=== PATIENT | female | born 1945 | race Two or more races ===

== ENCOUNTER 2017-04-16 11:47 | Inpatient (IN) | payer MEDICAID, MEDICARE, OTHER ==
[~2017-04-16] VITALS: Ht 160 cm; Wt 51.3 kg
[~2017-04-16 11:47] MED LIST: AMLO10TA4 PO; ATOR40TA PO; HYDR-4076 PO; VALS320T2 PO
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
[2017-04-16 12:14] LABS: BASOPHILS % (AUTO) 0.3 % (0.0-2.0); EOSINOPHILS % (AUTO) 0.2 % (0.0-6.0); HEMATOCRIT 35 % (33-45); HEMOGLOBIN 11.3 g/dL (11.5-14.8); LYMPHOCYTES # (AUTO) 0.9 /CMM (0.8-4.8); LYMPHOCYTES % (AUTO) 9.5 % (20.0-44.0); MEAN CORPUSCULAR HEMOGLOBIN 27 PG (26.0-33.0); MEAN CORPUSCULAR HGB CONC 33 g/dl (31.0-36.0); MEAN CORPUSCULAR VOLUME 81 fL (82-100); MONOCYTES # (AUTO) 0.7 /CMM (0.1-1.30); MONOCYTES % (AUTO) 7.3 % (2.0-12.0); NEUTROPHILS # (AUTO) 7.5 /CMM (1.8-8.9); NEUTROPHILS % (AUTO) 82.7 % (43.0-81.0); PLATELET COUNT (AUTO) 255 /CMM (150-450); RDW COEFFICIENT OF VARIATION 13.5 (11.5-15.0); RED BLOOD CELL COUNT(AUTO) 4.25 MIL/uL (4.0-5.2); WHITE BLOOD COUNT (AUTO) 9.1 K/uL (4.3-11.0)
[2017-04-16 12:30] LABS: ALANINE AMINOTRANSFERASE 39 U/L (12-78); ALBUMIN 3.1 g/dL (3.4-5.0); ALCOHOL, BLOOD < 3 mg/dL (0-0); ALKALINE PHOSPHATASE 86 U/L (46-116); ASPARTATE AMINOTRANSFERASE 31 U/L (15-37); BILIRUBIN,DIRECT 0.1 mg/dL (0.0-0.2); BILIRUBIN,TOTAL 0.4 mg/dL (0.2-1.0); CALCIUM, SERUM 8.8 mg/dL (8.5-10.1); CARBON DIOXIDE 28 mmol/L (21-32); CHLORIDE 104 mmol/L (98-107); CREATININE 1.4 mg/dL (0.6-1.3); GLUCOSE 90 mg/dL (74-106); SODIUM SERUM 140 mmol/L (136-145); TOTAL PROTEIN, SERUM 7.1 g/dL (6.4-8.2); UREA NITROGEN, BLOOD 29 mg/dL (7-18)
[2017-04-16] MEDS ORDERED: VALSARTAN 80 MG TABLET PO ONE (12:30)
[2017-04-16] MEDS ORDERED: AMLODIPINE BESYLATE 5 MG TABLET PO ONE (12:30)
[2017-04-16] MEDS ORDERED: hydrALAZINE HCL IV 20 MG VIAL IV ONE (12:30)
[2017-04-16 12:31] LABS: ACETAMINOPHEN < 2 ug/ml (10-30); POTASSIUM 2.8 mmol/L (3.5-5.1); SALICYLATE 0.9 mg/dL (2.8-20.0)
[2017-04-16 12:34] LABS: APPEARANCE,URINE Slightly Cloudy (CLEAR); BILIRUBIN,URINE Negative (NEGATIVE); BLOOD, URINE Trace-lysed Ery/uL (NEGATIVE); COLOR,URINE Yellow (YELLOW); KETONES,URINE Negative (NEGATIVE); LEUKOCYTE ESTERASE ,URINE Small (NEGATIVE); NITRITE, URINE Negative (NEGATIVE); PH,URINE 6.5 (5.0-8.0); PROTEIN,URINE 100 mg/dl (NEGATIVE); UGLUCOSE Negative (NEGATIVE); UROBILINOGEN,URINE 0.2 EU/dL (0.2)
[2017-04-16] MEDS ORDERED: AMLODIPINE BESYLATE 5 MG TABLET ONE (12:38)
[2017-04-16] MEDS ORDERED: hydrALAZINE HCL IV 20 MG VIAL ONE (12:38)
[2017-04-16 12:39] LABS: BACTERIA,URINE Rare /HPF (None Seen); RBC,URINE 0-2 /HPF (0-2); SQUAMOUS EPITHELIAL CELL,UR Rare /HPF (None Seen); WBC,URINE 0-2 /HPF (0-3)
[2017-04-16] MEDS ORDERED: VALSARTAN 80 MG TABLET ONE (12:39)
[2017-04-16 12:40] LABS: THYROID STIMULATING HORMONE 1.551 uIU/mL (0.358-3.74)
--- NOTE | 2017-04-16 12:40 | NUR ---
EPIC PAGED, REGISTERED MIDWIFE
--- NOTE | 2017-04-16 12:44 | NUR ---
CALLED NURSING SUP. FOR TELE BED
--- NOTE | 2017-04-16 12:50 | NUR ---
PT TO RADIOLOGY FOR HEAD CT SCAN VIA [facility].
--- NOTE | 2017-04-16 12:54 | NUR ---
TELE 116-2
[2017-04-16] MEDS ORDERED: POTASSIUM CHLORIDE 20 MEQ TAB.PRT.SR PO ONE ×2 (13:00→13:08)
--- NOTE | 2017-04-16 13:26 | NUR ---
REPORT GIVENPOOJA NAYAK. PT AWAITING TRANSFER TO FLOOR.
[2017-04-16] MEDS ORDERED: Z GUARD REMEDY 2 OZ OINT TP PRN (13:30)
[2017-04-16] MEDS ORDERED: MAGNESIUM HYDROXIDE 30 ML UDC PO PRN (13:30)
[2017-04-16] MEDS ORDERED: ACETAMINOPHEN 325 MG TABLET PO PRN (13:30)
[2017-04-16] MEDS ORDERED: ONDANSETRON HCL/PF 4 MG/2 ML VIAL IVP PRN (13:30)
[2017-04-16] MEDS ORDERED: ZOLPIDEM TARTRATE 5 MG TABLET PO PRN (13:30)
[2017-04-16] MEDS ORDERED: LABETALOL HCL IV 100MG VIAL IV PRN (13:30)
[2017-04-16] MEDS ORDERED: MAG HYDROX/AL HYDROX/SIMETH 30 ML UDC PO PRN (13:30)
[2017-04-16] MEDS ORDERED: HYDROCODONE/APAP 5/325MG 1 EACH TABLET PO PRN (13:30)
--- NOTE | 2017-04-16 13:35 | NUR ---
TANNER- [phone] FRIEND CHERYL- [phone]
[2017-04-16 14:00] VITALS: BP 134/98
[2017-04-16 14:30] VITALS: BP 134/98
--- NOTE | 2017-04-16 14:38 | NUR ---
OREN RN NOTE RECEIVED PATIENT FROM ER ,ALERT ORIENTED AND WITH SOME FORGETFULNESS AND ANXIOUS. PLACED ON TEL SR -ST 100 , VS TAKEN ADMITTED WITH DX HYPERFUSION UNDER CARE DOCTOR MARVA , HOSPITAL ORIENTATION DONE , VS TAKEN, BELONGING CHECKED , PLAN OF CARE DISCUSSER WITH PATIENT , CALL LIGHT WITHIN REACH , BED IN LOWEST AND LOCKED POSITION , BED ALARM IN PLACE FOR PATIENT SAFETY , HL ON RT AC INTACT, NO S\S INFECTION NOTED, WILL CONT TO MONITOR CLOSELY
--- NOTE | 2017-04-16 14:54 | NUR ---
OREN RN NOTE PER DR MARVA YBARRA TO ORDER PSYCH EVAL FOR PATENT BEHAVIOR , FEELS VERY ANXIOUS AND FEARFUL, FACE SHEET FAXED TO [facility]
[2017-04-16] MEDS: IV NS 0.9% 1,000 ML IV PRN (15:24)
--- NOTE | 2017-04-16 15:45 | NUR ---
OREN RN NOTE IVF STARTED ORDERED
[2017-04-16 16:00] VITALS: BP 134/89
--- NOTE | 2017-04-16 17:54 | NUR ---
OREN [place] NOTE CALLED TO DR DURHAM NOTIFIED THAT PATIENT NONCOMPLIANT WITH CARE TRYING TO REMOVE ALL IV LINES AND GET OUT OFF BED , AT RISK FALL FALL WITH NEW ORDER ATIVAN GIVEN , ORDER CARRIED OUT Addendum: 04/16/17 at 1827 by MALINI JENNINGS RN OREN [place] NOTE 1822 ATIVAN 0.5 MG IVP GIVEN ORDERED FOR RESTLESS AND AGITATION BY TRYING TO REMOVE ALL LINES AND TRYING TO GET OUT OFF BED ,AT RISK FOR FALL WILL F\U
[2017-04-16] MEDS: LORAZEPAM INJ 2 MG/ML VIAL IV PRN (18:16)
--- NOTE | 2017-04-16 18:49 | NUR ---
OREN RN NOTE RESTING COMFORTABLY FOR NOW , ALL NEEDS ATTENDED, CONT ON IVF ORDERED
--- NOTE | 2017-04-16 19:30 | NUR ---
RN NOTES PT AWAKE ON BED. QUIET. NO ACUTE RESP DISTRESS ON ROOM AIR. WITH SITTER AT BEDSIDE DUE TO EPISODE OF GETTING OUT ON BED AND CONFUSION AT TIMES. AOX 2-3 ABLE TO MAKE KNOWN NEEDS AND MAKE CONVERSATION. NO SIGNIFICANT HYPERTENSION NOR S/S OF HYPERTENSION NOTED. NO EPISODE OF DIZZINESS OR HEADACHE. IV SITE ON RAC G 20 RUNNING WITH NS @ 75 CC/HR INTACT AND PATENT./ KEPT PT CLEAN AND DRY CLOSELY MONITOR. BED LOCKED AND SECURED. WILL CONTINUE TO MONITOR.
[2017-04-16 20:00] VITALS: BP 130/84
[2017-04-17 00:11] VITALS: BP 144/93
[2017-04-17] MEDS: LORAZEPAM INJ 2 MG/ML VIAL IV PRN ×2 (03:31→21:25)
[2017-04-17 04:00] VITALS: BP 147/94
[2017-04-17] MEDS: IV NS 0.9% 1,000 ML IV PRN (05:44)
--- NOTE | 2017-04-17 06:49 | NUR ---
RN NOTES PT AWAKE AT THIS TIME. AFEBRILE NO S/S OF HYPERTENSION.PT ASLEEP ON AND SITTER REMAINED AT BEDSIDE. ALL DUE MEDICINE GIVEN ORDERED. NO CHANGE OF MENTAL STATUS NO ASE FROM ALL MEDICINE IV SITE CHANGE TO RIGHT HAND G22. NO SIGNIFICANT CHANGE OF CONDITION NOTED. KEPT PT CLEAN AND DRY. WILL CONTINUE TO MONITOR AND ENDORSED CONTINUITY OF CARE TO AM NURSE.
--- NOTE | 2017-04-17 07:46 | NUR ---
RN NOTES PT RECEIVED IN STABLE CONDITION, ON ROOM AIR SATING WELL NO SOB OR DISTRESS NOTED. A&0X3, PT BECOMES FORGETFUL. SR ON THE TELE MARILU HR 87. RH 22G IV SITE INTACT WITH IVF AT 75ML/HR. SITTER AT BEDSIDE FOR SAFETY. WILL CONT TO MARILU.
[2017-04-17 08:00] VITALS: BP 159/100
[2017-04-17] MEDS ORDERED: POTASSIUM CHLORIDE 20 MEQ TAB.PRT.SR PO ONE (08:30)
[2017-04-17] MEDS: VALSARTAN 80 MG TABLET PO SCH (08:32)
[2017-04-17] MEDS: ASPIRIN 81 MG TAB.CHEW PO SCH (08:32)
[2017-04-17] MEDS: AMLODIPINE BESYLATE 10 MG TABLET PO SCH (08:33)
[2017-04-17 08:50] LABS: BASOPHILS % (AUTO) 0.5 % (0.0-2.0); EOSINOPHILS % (AUTO) 0.8 % (0.0-6.0); HEMATOCRIT 33 % (33-45); LYMPHOCYTES % (AUTO) 19.1 % (20.0-44.0); MEAN CORPUSCULAR HEMOGLOBIN 28 PG (26.0-33.0); MEAN CORPUSCULAR HGB CONC 33 g/dl (31.0-36.0); MEAN CORPUSCULAR VOLUME 84 fL (82-100); MONOCYTES # (AUTO) 0.5 /CMM (0.1-1.30); MONOCYTES % (AUTO) 8.9 % (2.0-12.0); NEUTROPHILS # (AUTO) 3.8 /CMM (1.8-8.9); NEUTROPHILS % (AUTO) 70.7 % (43.0-81.0); PLATELET COUNT (AUTO) 225 /CMM (150-450); RDW COEFFICIENT OF VARIATION 14.9 (11.5-15.0); RED BLOOD CELL COUNT(AUTO) 3.96 MIL/uL (4.0-5.2); WHITE BLOOD COUNT (AUTO) 5.4 K/uL (4.3-11.0)
[2017-04-17 09:01] LABS: CALCIUM, SERUM 8.8 mg/dL (8.5-10.1); CARBON DIOXIDE 25 mmol/L (21-32); CHLORIDE 109 mmol/L (98-107); CREATININE 1.3 mg/dL (0.6-1.3); GLUCOSE 99 mg/dL (74-106); PHOSPHORUS 2.9 mg/dL (2.5-4.9); POTASSIUM 3.4 mmol/L (3.5-5.1); SODIUM SERUM 143 mmol/L (136-145); UREA NITROGEN, BLOOD 24 mg/dL (7-18)
[2017-04-17 09:10] LABS: CHOLESTEROL 178 mg/dL (<200); HDL CHOLESTEROL 78 mg/dL (40-60); LDL 86 mg/dL (0-99); THYROID STIMULATING HORMONE 1.935 uIU/mL (0.358-3.74); TRIGLYCERIDES 80 mg/dL (30-150)
[2017-04-17 12:00] VITALS: BP 144/90
[2017-04-17 16:00] VITALS: BP 143/80
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
--- NOTE | 2017-04-17 17:34 | NUR ---
RN NOTES PER CINDI MATTHEWS PULLED OUT IV. WILL ATTEMPT TO START A NEW IV.
--- NOTE | 2017-04-17 17:47 | NUR ---
RN NOTES PT REFUSING NEW IV. CHARGE NURSE AND DR DURHAM MADE AWARE.
--- NOTE | 2017-04-17 18:32 | NUR ---
RN NOTES PT REMAINED IN STABLE CONDITION THROUGHOUT THE SHIFT, NO SIGNIFICANT CHANGES. PT CONTINUES TO HALLUCINATE. STILL REFUSING NEW IV. SITTER AT BEDSIDE. WILL ENDORSE TO ONCOMING SHIFT.
[2017-04-17 20:00] VITALS: BP 156/98
[2017-04-17] MEDS ORDERED: QUETIAPINE FUMARATE 25 MG TABLET PO SCH (20:00)
--- NOTE | 2017-04-17 20:00 | NUR ---
RN MS INITIAL NOTES, RECEIVED PATIENT IN BED, AWAKE ALERT AND ORIENTED X2, BREATHING EVEN AND UNLABORED, NO S/S OF SOB OR CUTE DISTRESS NOTED AT THIS TIME, CALM AT THIS TIME, SITTER AT BEDSIDE AT THIS TIME, BED LOCKED AND IN LOWEST POSITION, CALL LIGHT W/I REACH., WILL CONTINUE TO MONITOR CLOSELY.
[2017-04-17] MEDS ORDERED: ATORVASTATIN 40 MG TABLET PO SCH (22:00)
[2017-04-18 04:00] VITALS: BP 142/83
[2017-04-18 08:34] LABS: BASOPHILS % (AUTO) 0.7 % (0.0-2.0); EOSINOPHILS # (AUTO) 0.1 /CMM (0.0-0.7); EOSINOPHILS % (AUTO) 1.5 % (0.0-6.0); HEMATOCRIT 34 % (33-45); HEMOGLOBIN 11.3 g/dL (11.5-14.8); LYMPHOCYTES # (AUTO) 1.2 /CMM (0.8-4.8); LYMPHOCYTES % (AUTO) 19.1 % (20.0-44.0); MEAN CORPUSCULAR HEMOGLOBIN 28 PG (26.0-33.0); MEAN CORPUSCULAR HGB CONC 33 g/dl (31.0-36.0); MEAN CORPUSCULAR VOLUME 85 fL (82-100); MONOCYTES # (AUTO) 0.6 /CMM (0.1-1.30); MONOCYTES % (AUTO) 10.1 % (2.0-12.0); NEUTROPHILS # (AUTO) 4.4 /CMM (1.8-8.9); NEUTROPHILS % (AUTO) 68.6 % (43.0-81.0); PLATELET COUNT (AUTO) 256 /CMM (150-450); RDW COEFFICIENT OF VARIATION 15.1 (11.5-15.0); WHITE BLOOD COUNT (AUTO) 6.4 K/uL (4.3-11.0)
[2017-04-18 09:12] LABS: CALCIUM, SERUM 9.3 mg/dL (8.5-10.1); CARBON DIOXIDE 24 mmol/L (21-32); CHLORIDE 109 mmol/L (98-107); CREATININE 1.4 mg/dL (0.6-1.3); GLUCOSE 97 mg/dL (74-106); MAGNESIUM 2.1 mg/dL (1.8-2.4); POTASSIUM 4.7 mmol/L (3.5-5.1); SODIUM SERUM 142 mmol/L (136-145); UREA NITROGEN, BLOOD 27 mg/dL (7-18)
[2017-04-18 14:00] VITALS: BP 133/97
--- NOTE | 2017-04-18 14:06 | NUR ---
Intake called, Uyen requests return call if patient medically cleared for discharge to [facility].
[2017-04-18] MEDS: ASPIRIN 81 MG TAB.CHEW PO SCH (14:12)
[2017-04-18] MEDS: AMLODIPINE BESYLATE 10 MG TABLET PO SCH (14:14)
[2017-04-18 14:17] VITALS: BP 131/97
[2017-04-18] MEDS: VALSARTAN 80 MG TABLET PO SCH (14:17)
--- NOTE | 2017-04-18 18:11 | NUR ---
Discharged patient under 5150 hold to geropsychiatry facility in [place].
[2017-04-18] MEDS ORDERED: VALS80TA2 PO (18:19)
[2017-04-18] MEDS ORDERED: MAG30ORA PO (18:19)
[2017-04-18] MEDS ORDERED: QUET25TA PO (18:19)
[2017-04-18] MEDS ORDERED: LABE5VIA3 IV (18:19)
[2017-04-18] MEDS ORDERED: AMLO10TA2 PO (18:19)
[2017-04-18] MEDS ORDERED: ONDA4TAB5 PO (18:19)
[2017-04-18] MEDS ORDERED: NORM10004 IV (18:19)
[2017-04-18] MEDS ORDERED: ZOLP5TAB8 PO (18:19)
[2017-04-18] MEDS ORDERED: ACET-868 PO (18:19)
[2017-04-18] MEDS ORDERED: ATOR40TA PO (18:19)
[2017-04-18] MEDS ORDERED: MAGN400O6 PO (18:19)
[2017-04-18] MEDS ORDERED: HYDR-552 PO (18:19)
[2017-04-18] MEDS ORDERED: ASPI-1169 PO (18:19)
[2017-04-18] MEDS ORDERED: ALLA266C2 TP (18:19)
[2017-04-18] MEDS ORDERED: LORA2VIA11 IV (18:19)
== END 2017-04-18 17:38 | DRG 304 ==
LOC: ER 11:49 → TELE1 13:49 → TELE-TD 14:10 → TELE1 04-17 09:59 → MEDSG1 04-17 16:08
PROVIDERS: ADMIT Internal Medicine; ATTEND Internal Medicine
DX: I16.0 Hypertensive urgency (principal); N17.0 Acute kidney failure with tubular necrosis; E46 Unspecified protein-calorie malnutrition; F23 Brief psychotic disorder; E88.09 Other disorders of plasma-protein metabolism, not elsewhere classified; E78.5 Hyperlipidemia, unspecified; E87.6 Hypokalemia; Z86.73 Personal history of transient ischemic attack (TIA), and cerebral infarction without residual deficits; Z68.20 Body mass index [BMI] 20.0-20.9, adult; G43.909 Migraine, unspecified, not intractable, without status migrainosus; I70.90 Unspecified atherosclerosis; R41.0 Disorientation, unspecified; F01.50 Vascular dementia, unspecified severity, without behavioral disturbance, psychotic disturbance, mood disturbance, and anxiety; Z91.14 Patient's other noncompliance with medication regimen
CPT/HCPCS: 36415; 70450-TC; 80048-TC; 80061-TC; 80076-TC; 80305; 81000-TC; 83735-TC; 84100-TC; 84443-TC; 84484-TC; 85025-TC; 87081-TC; 97116-TC; 97530-TC; A4606; G0480; J0360; J2060; J7030; Z7610

== ENCOUNTER 2017-04-18 18:08 | Inpatient (IN) | payer OTHER ==
[~2017-04-18] VITALS: Ht 154.9 cm; Wt 47.6 kg
[2017-04-18] MEDS ORDERED: QUET25TA PO (18:19)
[2017-04-18] MEDS ORDERED: ZOLP5TAB8 PO (18:19)
[2017-04-18] MEDS ORDERED: AMLO10TA2 PO (18:19)
[2017-04-18] MEDS ORDERED: MAG30ORA PO (18:19)
[2017-04-18] MEDS ORDERED: ATOR40TA PO (18:19)
[2017-04-18] MEDS ORDERED: LORA2VIA11 IV (18:19)
[2017-04-18] MEDS ORDERED: LABE5VIA3 IV (18:19)
[2017-04-18] MEDS ORDERED: NORM10004 IV (18:19)
[2017-04-18] MEDS ORDERED: MAGN400O6 PO (18:19)
[2017-04-18] MEDS ORDERED: VALS80TA2 PO (18:19)
[2017-04-18] MEDS ORDERED: ONDA4TAB5 PO (18:19)
[2017-04-18] MEDS ORDERED: HYDR-552 PO (18:19)
[2017-04-18] MEDS ORDERED: ALLA266C2 TP (18:19)
[2017-04-18] MEDS ORDERED: ACET-868 PO (18:19)
[2017-04-18] MEDS ORDERED: ASPI-1169 PO (18:19)
[2017-04-18] MEDS ORDERED: MAG HYDROX/AL HYDROX/SIMETH 30 ML UDC PO PRN (18:30)
[2017-04-18] MEDS ORDERED: MAGNESIUM HYDROXIDE 30 ML UDC PO PRN (18:30)
[2017-04-18] MEDS ORDERED: LORAZEPAM 0.5 MG TABLET PO PRN (18:30)
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
[2017-04-18 20:00] VITALS: BP 129/88
--- NOTE | 2017-04-18 20:53 | NUR ---
PAGED DR. PRICE REGARDING MED RECONCILIATION.
--- NOTE | 2017-04-18 22:58 | NUR ---
LANIE CALLED AND SAID, SHE IS FILING THE TARASOFF, SHE IS ALSO CALLING THE POLICE TO MAKE A FOLLOW UP, BECAUSE SHE CAN'T GET HOLD OF THE OF THE PATIENT.
[2017-04-18] MEDS: TEMAZEPAM 7.5 MG CAPSULE PO PRN (23:14)
[2017-04-19] MEDS ORDERED: LABETALOL HCL IV 100MG VIAL IV PRN (02:30)
[2017-04-19 08:00] VITALS: BP 150/99
[2017-04-19] MEDS: ASPIRIN 81 MG TAB.CHEW PO SCH (08:13)
[2017-04-19] MEDS: AMLODIPINE BESYLATE 10 MG TABLET PO SCH (08:13)
[2017-04-19] MEDS: VALSARTAN 80 MG TABLET PO SCH (08:14)
[2017-04-19 08:35] LABS: ALANINE AMINOTRANSFERASE 40 U/L (12-78); ALBUMIN 3.3 g/dL (3.4-5.0); ALKALINE PHOSPHATASE 80 U/L (46-116); ASPARTATE AMINOTRANSFERASE 25 U/L (15-37); BILIRUBIN,TOTAL 0.4 mg/dL (0.2-1.0); CALCIUM, SERUM 9.4 mg/dL (8.5-10.1); CARBON DIOXIDE 29 mmol/L (21-32); CHLORIDE 108 mmol/L (98-107); CREATININE 1.6 mg/dL (0.6-1.3); GLUCOSE 111 mg/dL (74-106); POTASSIUM 4.3 mmol/L (3.5-5.1); SODIUM SERUM 144 mmol/L (136-145); TOTAL PROTEIN, SERUM 7.2 g/dL (6.4-8.2); UREA NITROGEN, BLOOD 38 mg/dL (7-18)
[2017-04-19 08:44] LABS: CHOLESTEROL 164 mg/dL (<200); HDL CHOLESTEROL 79 mg/dL (40-60); LDL 76 mg/dL (0-99); TRIGLYCERIDES 80 mg/dL (30-150)
--- NOTE | 2017-04-19 10:36 | NUR ---
GPS RN NOTE: T.O. ORDER PER MD DR JOHNSON SEROQUEL 12.5 MG PO EVERY HS, ORDER PLACED AND CARED OUT
[2017-04-19 16:00] VITALS: BP 144/93
--- NOTE | 2017-04-19 16:31 | NUR ---
Initial Discharge Note: Patient resides at [address] [place] [address] [place] [id number] / [phone] with her , Avelino. Patient stated that she wanted to return home upon discharge. SW called the by calling the house number listed on the facesheet. The telephone rang continuously and did not have a voicemail option. Alternative placement might be necessary for patient. ELIA will follow up with MD and will facilitate a safe and proper discharge.
[2017-04-19 20:00] VITALS: BP 150/90
[2017-04-19] MEDS: ATORVASTATIN 40 MG TABLET PO SCH (21:14)
[2017-04-19] MEDS: QUETIAPINE FUMARATE 25 MG TABLET PO SCH (21:14)
[2017-04-19] MEDS: TEMAZEPAM 7.5 MG CAPSULE PO PRN (21:14)
[2017-04-20 08:00] VITALS: BP 113/78
[2017-04-20] MEDS: ASPIRIN 81 MG TAB.CHEW PO SCH (09:33)
[2017-04-20] MEDS: AMLODIPINE BESYLATE 10 MG TABLET PO SCH (09:33)
[2017-04-20] MEDS: VALSARTAN 80 MG TABLET PO SCH (09:33)
[2017-04-20 11:09] LABS: CALCIUM, SERUM 9.3 mg/dL (8.5-10.1); CARBON DIOXIDE 27 mmol/L (21-32); CHLORIDE 105 mmol/L (98-107); CREATININE 1.7 mg/dL (0.6-1.3); GLUCOSE 103 mg/dL (74-106); MAGNESIUM 2.3 mg/dL (1.8-2.4); PHOSPHORUS 5.1 mg/dL (2.5-4.9); POTASSIUM 4.9 mmol/L (3.5-5.1); SODIUM SERUM 139 mmol/L (136-145); UREA NITROGEN, BLOOD 39 mg/dL (7-18)
[2017-04-20 11:11] LABS: BASOPHILS % (AUTO) 0.5 % (0.0-2.0); EOSINOPHILS % (AUTO) 0.2 % (0.0-6.0); HEMATOCRIT 35 % (33-45); HEMOGLOBIN 11.8 g/dL (11.5-14.8); LYMPHOCYTES # (AUTO) 0.8 /CMM (0.8-4.8); LYMPHOCYTES % (AUTO) 8.2 % (20.0-44.0); MEAN CORPUSCULAR HEMOGLOBIN 28 PG (26.0-33.0); MEAN CORPUSCULAR HGB CONC 34 g/dl (31.0-36.0); MEAN CORPUSCULAR VOLUME 82 fL (82-100); MONOCYTES # (AUTO) 0.5 /CMM (0.1-1.30); MONOCYTES % (AUTO) 5.5 % (2.0-12.0); NEUTROPHILS % (AUTO) 85.6 % (43.0-81.0); PLATELET COUNT (AUTO) 270 /CMM (150-450); RDW COEFFICIENT OF VARIATION 14.1 (11.5-15.0); RED BLOOD CELL COUNT(AUTO) 4.22 MIL/uL (4.0-5.2); WHITE BLOOD COUNT (AUTO) 9.3 K/uL (4.3-11.0)
--- NOTE | 2017-04-20 11:59 | NUR ---
DR. JOHNSON GAVE AN ORDER TO CHANGE SERVICE TO DR. PADRON
[2017-04-20] MEDS: SERTRALINE HCL 25 MG TABLET PO SCH (15:09)
[2017-04-20 16:00] VITALS: BP 111/79
[2017-04-20 20:00] VITALS: BP 118/78
[2017-04-20] MEDS: QUETIAPINE FUMARATE 25 MG TABLET PO SCH (21:32)
[2017-04-20] MEDS: ATORVASTATIN 40 MG TABLET PO SCH (21:33)
[2017-04-21 08:00] VITALS: BP 112/69
[2017-04-21] MEDS: ASPIRIN 81 MG TAB.CHEW PO SCH (09:05)
[2017-04-21] MEDS: SERTRALINE HCL 25 MG TABLET PO SCH (09:06)
[2017-04-21] MEDS: AMLODIPINE BESYLATE 10 MG TABLET PO SCH (09:06)
[2017-04-21] MEDS: VALSARTAN 80 MG TABLET PO SCH (09:06)
[2017-04-21 15:57] VITALS: BP 105/69
[2017-04-21 21:03] VITALS: BP 125/94
[2017-04-21] MEDS: ATORVASTATIN 40 MG TABLET PO SCH (22:13)
[2017-04-21] MEDS: QUETIAPINE FUMARATE 25 MG TABLET PO SCH (22:13)
[2017-04-22 08:00] VITALS: BP 121/82
[2017-04-22] MEDS: SERTRALINE HCL 25 MG TABLET PO SCH (08:32)
[2017-04-22] MEDS: VALSARTAN 80 MG TABLET PO SCH (08:32)
[2017-04-22] MEDS: ASPIRIN 81 MG TAB.CHEW PO SCH (08:33)
[2017-04-22] MEDS: AMLODIPINE BESYLATE 10 MG TABLET PO SCH (08:33)
--- NOTE | 2017-04-22 15:08 | NUR ---
GPS/RN AUGUSTA WHITE NOTIFIED AND AWARE OF NEED TO CHANGE LABETALOL IV PO OR TO DISCONTINUE. AWAITING CHANGES TO BE INPUTTED IN SYSTEM.
[2017-04-22 15:55] VITALS: BP 123/91
[2017-04-22] MEDS: DIVALPROEX SODIUM 125 MG TABLET.DR PO SCH (17:20)
[2017-04-22 19:56] VITALS: BP 135/72
[2017-04-22] MEDS: ATORVASTATIN 40 MG TABLET PO SCH (21:27)
[2017-04-22] MEDS: QUETIAPINE FUMARATE 25 MG TABLET PO SCH (21:27)
[2017-04-23] MEDS: ACETAMINOPHEN 325 MG TABLET PO PRN (00:39)
[2017-04-23 08:00] VITALS: BP 117/67
--- NOTE | 2017-04-23 08:40 | NUR ---
UR Review: ELIA faxed clinical to [facility], EXT 423 / fax number [phone]. No rifle case repairer was assigned at this time.
[2017-04-23] MEDS: AMLODIPINE BESYLATE 10 MG TABLET PO SCH (08:55)
[2017-04-23] MEDS: DIVALPROEX SODIUM 125 MG TABLET.DR PO SCH ×3 (08:55→17:00)
[2017-04-23] MEDS: SERTRALINE HCL 25 MG TABLET PO SCH (08:55)
[2017-04-23] MEDS: ASPIRIN 81 MG TAB.CHEW PO SCH (08:55)
[2017-04-23] MEDS: VALSARTAN 80 MG TABLET PO SCH (08:55)
--- NOTE | 2017-04-23 15:30 | NUR ---
Discharge Planning: SW attempted to get in touch with patient's again at the home phone number on the face sheet [phone]. Once again, the number rang continuously with no voicemail option. SW saw that it was noted that was at the hospital. However, no contact information was provided. There are no phone numbers listed in patient's notes, charts. SW spoke to patient. Patient stated that her left her for another woman. Patient stated that she does not want to go home and that she is interested in a intermediate. SW informed the nurses that, if comes to visit patient or if he calls the nurses station, to please obtain contact information for him. SW to discuss with patient a safe discharge plan.
[2017-04-23 15:37] VITALS: BP 120/83
--- NOTE | 2017-04-23 18:13 | NUR ---
RN-CO: Patient was placed on 1:1 sitter for being high fall risk. Her gait is very unstable, needs stand by assist while ambulating.
[2017-04-23 20:50] VITALS: BP 129/76
[2017-04-23] MEDS: ATORVASTATIN 40 MG TABLET PO SCH (21:17)
[2017-04-23] MEDS: QUETIAPINE FUMARATE 25 MG TABLET PO SCH (21:17)
[2017-04-23] MEDS: TEMAZEPAM 7.5 MG CAPSULE PO PRN (22:34)
[2017-04-24 08:32] LABS: CALCIUM, SERUM 8.9 mg/dL (8.5-10.1); CARBON DIOXIDE 27 mmol/L (21-32); CHLORIDE 108 mmol/L (98-107); CREATININE 1.6 mg/dL (0.6-1.3); GLUCOSE 87 mg/dL (74-106); POTASSIUM 3.8 mmol/L (3.5-5.1); SODIUM SERUM 141 mmol/L (136-145); UREA NITROGEN, BLOOD 49 mg/dL (7-18)
--- NOTE | 2017-04-24 08:34 | NUR ---
UR Update: ELIA faxed progress notes to [facility], EXT 423 / fax number [phone]. There is still no machine adjuster leader case trim assigned to this case and ELIA has no received any calls regarding this case / patient. ELIA will follow up today by calling the number provided by intake department *see above*
[2017-04-24] MEDS: VALSARTAN 80 MG TABLET PO SCH (09:37)
[2017-04-24] MEDS: ASPIRIN 81 MG TAB.CHEW PO SCH (09:37)
[2017-04-24] MEDS: AMLODIPINE BESYLATE 10 MG TABLET PO SCH (09:37)
[2017-04-24] MEDS: SERTRALINE HCL 25 MG TABLET PO SCH (09:37)
[2017-04-24 09:44] VITALS: BP 120/63
[2017-04-24] MEDS: DIVALPROEX SODIUM 125 MG TABLET.DR PO SCH ×3 (09:50→17:36)
[2017-04-24 10:13] LABS: CALCITRIOL VIT D,1, 25 DIHYDRO 20.2 pg/mL (19.9-79.3)
[2017-04-24] MEDS: CHOLECALCIFEROL 1,000 UNIT TABLET (VIT D3) PO SCH (10:30)
--- NOTE | 2017-04-24 13:24 | NUR ---
UR Review: ELIA called and spoke with Sherron from [facility], EXT 423. Sherron stated that there is no wrapper caser assigned yet, but confirmed that she received the clinicals and the progress notes. Sherron asked ELIA to inform her once a discharge date is set for patient.
--- NOTE | 2017-04-24 13:25 | NUR ---
Discharge Planning: Yesterday, ELIA spoke with patient's psychiatrist, Dr. Calhoun. Dr. Calhoun informed ELIA that he spoke [id number] with patient's during visiting hours a couple of days ago. Dr. Calhoun stated that, during his conversation with the , the indicated that he would like to take his back home and denied any separation. ELIA is still attempting to locate contact info for the . If ELIA is unsuccessful, she will contact the [employer]'s department and request for an office to be sent out to patient's home in order to obtain contact information to ensure safe and proper discharge.
[2017-04-24] MEDS ORDERED: ACETYLCYSTEINE 20% ORAL SOLN 6,000 MG/30 ML VIAL PO PRN (14:00)
--- NOTE | 2017-04-24 14:30 | NUR ---
Discharge Planning: ELIA went through notes from patient's visit to the emergency room. In the nursing notes, ELIA found the number for patient's friend/neighbor Maday [phone]. ELIA called the number and got in contact with Maday. Maday stated that she lives right by 's house. Maday walked over the the 's house and knocked on the front and back door. Maday was then informed by another neighbor that patient's stepped out of the house a half hour ago. ELIA heard the conversation through the telephone. ELIA provided Maday with her direct contact information. Maday stated that as soon as the comes back, she will inform him of the call and give him SW's contact number. ELIA did not disclose any information regarding patient's medical and psychiatric state. Maday was able to confirm that 's name was Geronimo and that his phone number was, indeed, . Maday stated that it is a landline and that no answering machine is set up yet. Maday had no alternative contact number for Geronimo.
[2017-04-24 16:38] VITALS: BP 114/74
[2017-04-24] MEDS: GUAIFENESIN LA 600 MG TABLET.SA PO SCH (17:36)
[2017-04-24] MEDS: ACETAMINOPHEN 325 MG TABLET PO PRN (20:09)
--- NOTE | 2017-04-24 20:09 | NUR ---
GPS RN NOTES: PATIENT C/O PAIN ON BILATERAL LEGS. ON A SCALE OF 0/10 AND 10 IS THE WORST PAIN IMAGINABLE PATIENT RATES 5/10. ACETAMINOPHEN 650MG PO GIVEN PRN ORDER. WILL CONTINUE AND MONITOR TO ASSESS PAIN.
[2017-04-24 20:25] VITALS: BP 143/99
[2017-04-24] MEDS: ATORVASTATIN 40 MG TABLET PO SCH (21:33)
[2017-04-24] MEDS: QUETIAPINE FUMARATE 25 MG TABLET PO SCH (21:34)
[2017-04-24] MEDS: TEMAZEPAM 7.5 MG CAPSULE PO PRN (22:24)
[2017-04-25] MEDS: ACETAMINOPHEN 325 MG TABLET PO PRN (03:01)
[2017-04-25 07:26] LABS: ALANINE AMINOTRANSFERASE 38 U/L (12-78); ASPARTATE AMINOTRANSFERASE 31 U/L (15-37)
[2017-04-25 07:34] LABS: VALPROIC ACID 25 ug/mL (50-100)
[2017-04-25 08:00] VITALS: BP 134/86
[2017-04-25] MEDS: CHOLECALCIFEROL 1,000 UNIT TABLET (VIT D3) PO SCH (08:35)
[2017-04-25] MEDS: VALSARTAN 80 MG TABLET PO SCH (08:35)
[2017-04-25] MEDS: DIVALPROEX SODIUM 125 MG TABLET.DR PO SCH (08:35)
[2017-04-25] MEDS: SERTRALINE HCL 25 MG TABLET PO SCH (08:35)
[2017-04-25] MEDS: GUAIFENESIN LA 600 MG TABLET.SA PO SCH ×2 (08:35→17:00)
[2017-04-25] MEDS: QUETIAPINE FUMARATE 25 MG TABLET PO SCH ×2 (08:35→21:21)
[2017-04-25] MEDS: ASPIRIN 81 MG TAB.CHEW PO SCH (08:36)
[2017-04-25] MEDS: AMLODIPINE BESYLATE 10 MG TABLET PO SCH (08:36)
--- NOTE | 2017-04-25 10:10 | NUR ---
GPS/RN-NOTES DR. PADRON SEEN THE PATIENT. PER MD. PT. C/O OF UNABLE TO WALK. PER RECORD PT. WAS SEEN BY PT STAFF ON 04/23/17 WITH D/C NOTES. DR. PADRON GAVE VERBAL ORDER FOR PATIENT TO DO PT. EVAL. NOTED AND CARRIED OUT.
[2017-04-25] MEDS: DIVALPROEX SODIUM 250 MG TABLET.DR PO SCH ×2 (13:34→17:00)
--- NOTE | 2017-04-25 14:24 | NUR ---
Discharge Planning: SW managed to get in contact with patient's Geronimo [phone]. Geronimo stated that he visited with his yesterday and that, once she is stable and healthy, he has no issues with her coming back home. Geronimo stated that he will provide transportation and will provide care for his . SW spoke with patient as well. Patient did confirm that came to visit. Patient stated that she is still unsure about going home because she believes is unfaithful. However, patient admitted that she feels confused. Patient stated that she feels happier today and feels better than yesterday. Patient admitted that the streets would not be safe for her. SW to continue to follow up on discharge plan.
--- NOTE | 2017-04-25 14:33 | NUR ---
UR Review: ELIA faxed updated clinicals to [facility], EXT 423 / fax number [phone]
[2017-04-25 15:46] VITALS: BP 109/78
[2017-04-25 20:00] VITALS: BP 128/80
[2017-04-25] MEDS: ATORVASTATIN 40 MG TABLET PO SCH (21:20)
[2017-04-25] MEDS: TEMAZEPAM 7.5 MG CAPSULE PO PRN (21:21)
[2017-04-26 08:00] VITALS: BP 130/62
--- NOTE | 2017-04-26 09:07 | NUR ---
ELIA was contacted by APS worker Argelia, . Argelia notified ELIA that she will be visiting the hospital to discuss the case with SW and with patient.
[2017-04-26] MEDS: CHOLECALCIFEROL 1,000 UNIT TABLET (VIT D3) PO SCH (09:45)
[2017-04-26] MEDS: AMLODIPINE BESYLATE 10 MG TABLET PO SCH (09:45)
[2017-04-26] MEDS: SERTRALINE HCL 25 MG TABLET PO SCH (09:45)
[2017-04-26] MEDS: QUETIAPINE FUMARATE 25 MG TABLET PO SCH ×2 (09:45→21:12)
[2017-04-26] MEDS: GUAIFENESIN LA 600 MG TABLET.SA PO SCH ×2 (09:45→16:13)
[2017-04-26] MEDS: DIVALPROEX SODIUM 250 MG TABLET.DR PO SCH ×3 (09:45→16:13)
[2017-04-26] MEDS: VALSARTAN 80 MG TABLET PO SCH (09:46)
[2017-04-26] MEDS: ASPIRIN 81 MG TAB.CHEW PO SCH (09:46)
--- NOTE | 2017-04-26 15:10 | NUR ---
Patient was visited by APS worker Bon, / fax #[phone]. APS worker stated that patient is verbalizing a desire to return home. APS worker stated that, if is willing to accept patient back, then it should not be an issue. APS Worker provided her business card to SW and asked SW to update her regarding patient's discharge plan.
[2017-04-26] MEDS: ACETAMINOPHEN 325 MG TABLET PO PRN ×2 (16:13→23:07)
--- NOTE | 2017-04-26 16:13 | NUR ---
RN Note: PATIENT HAS 3/10 PAIN. ACETAMINOPHEN 650 MG GIVEN
[2017-04-26 17:00] VITALS: BP 122/80
[2017-04-26 20:00] VITALS: BP 122/57
[2017-04-26] MEDS: ATORVASTATIN 40 MG TABLET PO SCH (21:12)
[2017-04-27] MEDS: TEMAZEPAM 7.5 MG CAPSULE PO PRN (01:50)
[2017-04-27 08:00] VITALS: BP 125/78
[2017-04-27 08:07] LABS: BASOPHILS % (AUTO) 0.7 % (0.0-2.0); EOSINOPHILS # (AUTO) 0.1 /CMM (0.0-0.7); EOSINOPHILS % (AUTO) 2.8 % (0.0-6.0); HEMATOCRIT 31 % (33-45); HEMOGLOBIN 10.4 g/dL (11.5-14.8); LYMPHOCYTES % (AUTO) 18.9 % (20.0-44.0); MEAN CORPUSCULAR HEMOGLOBIN 28 PG (26.0-33.0); MEAN CORPUSCULAR HGB CONC 34 g/dl (31.0-36.0); MEAN CORPUSCULAR VOLUME 84 fL (82-100); MONOCYTES # (AUTO) 0.7 /CMM (0.1-1.30); MONOCYTES % (AUTO) 12.5 % (2.0-12.0); NEUTROPHILS # (AUTO) 3.5 /CMM (1.8-8.9); NEUTROPHILS % (AUTO) 65.1 % (43.0-81.0); PLATELET COUNT (AUTO) 195 /CMM (150-450); WHITE BLOOD COUNT (AUTO) 5.4 K/uL (4.3-11.0)
[2017-04-27 08:17] LABS: CALCIUM, SERUM 8.7 mg/dL (8.5-10.1); CARBON DIOXIDE 28 mmol/L (21-32); CHLORIDE 106 mmol/L (98-107); CREATININE 1.6 mg/dL (0.6-1.3); GLUCOSE 81 mg/dL (74-106); POTASSIUM 4.1 mmol/L (3.5-5.1); SODIUM SERUM 142 mmol/L (136-145); UREA NITROGEN, BLOOD 45 mg/dL (7-18)
[2017-04-27] MEDS: AMLODIPINE BESYLATE 10 MG TABLET PO SCH (08:41)
[2017-04-27] MEDS: CHOLECALCIFEROL 1,000 UNIT TABLET (VIT D3) PO SCH (08:41)
[2017-04-27] MEDS: QUETIAPINE FUMARATE 25 MG TABLET PO SCH ×2 (08:41→21:32)
[2017-04-27] MEDS: SERTRALINE HCL 25 MG TABLET PO SCH (08:41)
[2017-04-27] MEDS: GUAIFENESIN LA 600 MG TABLET.SA PO SCH ×2 (08:41→16:34)
[2017-04-27] MEDS: ASPIRIN 81 MG TAB.CHEW PO SCH (08:41)
[2017-04-27] MEDS: DIVALPROEX SODIUM 250 MG TABLET.DR PO SCH ×3 (08:41→16:33)
[2017-04-27] MEDS: VALSARTAN 80 MG TABLET PO SCH (08:42)
[2017-04-27] MEDS ORDERED: IV NS 0.9% 1,000 ML BAG IV ONE (12:00)
[2017-04-27] MEDS ORDERED: IV NS 0.9% 1,000 ML IV PRN (12:30)
[2017-04-27 16:00] VITALS: BP 107/67
[2017-04-27 20:00] VITALS: BP 108/72
[2017-04-27] MEDS: ATORVASTATIN 40 MG TABLET PO SCH (21:32)
--- NOTE | 2017-04-28 03:32 | NUR ---
Pt has been very disorganized & confused. She needed multiple promptings to take her noc po meds.
[2017-04-28 08:00] VITALS: BP 119/77
[2017-04-28 08:36] LABS: BASOPHILS % (AUTO) 0.1 % (0.0-2.0); EOSINOPHILS # (AUTO) 0.1 /CMM (0.0-0.7); EOSINOPHILS % (AUTO) 1.1 % (0.0-6.0); HEMATOCRIT 31 % (33-45); HEMOGLOBIN 10.4 g/dL (11.5-14.8); LYMPHOCYTES # (AUTO) 0.3 /CMM (0.8-4.8); LYMPHOCYTES % (AUTO) 4.7 % (20.0-44.0); MEAN CORPUSCULAR HEMOGLOBIN 28 PG (26.0-33.0); MEAN CORPUSCULAR HGB CONC 33 g/dl (31.0-36.0); MEAN CORPUSCULAR VOLUME 85 fL (82-100); MONOCYTES # (AUTO) 0.4 /CMM (0.1-1.30); MONOCYTES % (AUTO) 7.7 % (2.0-12.0); NEUTROPHILS # (AUTO) 4.8 /CMM (1.8-8.9); NEUTROPHILS % (AUTO) 86.4 % (43.0-81.0); PLATELET COUNT (AUTO) 178 /CMM (150-450); RDW COEFFICIENT OF VARIATION 15.1 (11.5-15.0); RED BLOOD CELL COUNT(AUTO) 3.69 MIL/uL (4.0-5.2); WHITE BLOOD COUNT (AUTO) 5.5 K/uL (4.3-11.0)
[2017-04-28] MEDS: GUAIFENESIN LA 600 MG TABLET.SA PO SCH ×2 (08:48→16:02)
[2017-04-28] MEDS: ASPIRIN 81 MG TAB.CHEW PO SCH (08:48)
[2017-04-28] MEDS: CHOLECALCIFEROL 1,000 UNIT TABLET (VIT D3) PO SCH (08:48)
[2017-04-28] MEDS: DIVALPROEX SODIUM 250 MG TABLET.DR PO SCH ×2 (08:49→12:49)
[2017-04-28] MEDS: AMLODIPINE BESYLATE 10 MG TABLET PO SCH (08:49)
[2017-04-28] MEDS: VALSARTAN 80 MG TABLET PO SCH (08:49)
[2017-04-28] MEDS: QUETIAPINE FUMARATE 25 MG TABLET PO SCH ×2 (08:54→21:49)
[2017-04-28] MEDS: SERTRALINE HCL 25 MG TABLET PO SCH (09:07)
[2017-04-28 09:19] LABS: ALANINE AMINOTRANSFERASE 40 U/L (12-78); ASPARTATE AMINOTRANSFERASE 25 U/L (15-37); CALCIUM, SERUM 8.5 mg/dL (8.5-10.1); CARBON DIOXIDE 24 mmol/L (21-32); CHLORIDE 108 mmol/L (98-107); CREATININE 1.6 mg/dL (0.6-1.3); GLUCOSE 124 mg/dL (74-106); MAGNESIUM 1.9 mg/dL (1.8-2.4); POTASSIUM 4.2 mmol/L (3.5-5.1); SODIUM SERUM 142 mmol/L (136-145); UREA NITROGEN, BLOOD 45 mg/dL (7-18)
[2017-04-28 09:41] LABS: VALPROIC ACID 35 ug/mL (50-100)
[2017-04-28 16:31] VITALS: BP 116/79
[2017-04-28 19:53] VITALS: BP 134/97
[2017-04-28] MEDS ORDERED: DIVALPROEX SODIUM 500 MG TABLET.DR PO SCH (21:00)
[2017-04-28] MEDS: ATORVASTATIN 40 MG TABLET PO SCH (21:49)
--- NOTE | 2017-04-29 00:34 | NUR ---
Pt remains very disorganized & confused. She again needed multiple promptings to take her noc po meds.
[2017-04-29] MEDS: VALSARTAN 80 MG TABLET PO SCH (08:12)
[2017-04-29] MEDS: GUAIFENESIN LA 600 MG TABLET.SA PO SCH (08:12)
[2017-04-29] MEDS: QUETIAPINE FUMARATE 25 MG TABLET PO SCH (08:13)
[2017-04-29] MEDS: ASPIRIN 81 MG TAB.CHEW PO SCH (08:13)
[2017-04-29] MEDS: AMLODIPINE BESYLATE 10 MG TABLET PO SCH (08:13)
[2017-04-29] MEDS: SERTRALINE HCL 25 MG TABLET PO SCH (08:15)
[2017-04-29] MEDS: CHOLECALCIFEROL 1,000 UNIT TABLET (VIT D3) PO SCH (08:15)
[2017-04-29] MEDS: DIVALPROEX SODIUM 250 MG TABLET.DR PO SCH ×2 (08:22→12:42)
--- NOTE | 2017-04-29 09:48 | NUR ---
RN-CO: Patient is alert and oriented x3, pleasant, denied suicidal and homicidal ideation. She denied auditory and visual hallucination. Calm and cooperative to care. Dr Calhoun gave an order to discontinue hold and discharge the patient today. Noted.
[2017-04-29 09:52] VITALS: BP 134/87
--- NOTE | 2017-04-29 11:03 | NUR ---
RN-CO: Patient refused photo upon discharge.
--- NOTE | 2017-04-29 11:06 | NUR ---
Discharge Planning: SW contacted pts Geronimo, to inform him that pt was ready for discharge, per Dr. Calhoun. Pts will pick pt up at 4 pm in a taxi. SW will follow up to ensure pt is properly and safely discharged.
--- NOTE | 2017-04-29 12:55 | NUR ---
RN-CO: PATIENT WAS SEEN AND EXAMINED HER AND MEDICALLY CLEARED HER FOR DISCHARGE.
--- NOTE | 2017-04-29 14:00 | NUR ---
RN-CO: Patient was seen by Dr Calhoun.
--- NOTE | 2017-04-29 14:50 | NUR ---
RN-CO: (Geronimo Acharya) and an neighbor came and picked up the patient. Prescriptions were explained and and patient verbalized understanding. They signed all discharge papers. Staff, Traci escorted them to hospital lobby. All belongings were given back to the patient.
--- NOTE | 2017-04-29 16:39 | NUR ---
Discharge Note: Patient will be discharged home, [address] [place] [address] / [phone] via private transportation at 4 pm. Pts , Geronimo will be picking her up in a taxi. Pt has been notified and is in agreement. Pt was referred to the following [place]: [facility]; [address] [facility]. [address] [place] [address] . Open Saturday-Saturday 8:30 am to 5pm. Call to schedule appointment and Psychiatrist: [facility] [address] [facility] [address]; [phone] ASK for: Charla Granados Clinician to set an appointment. Pt agreed to follow up with referrals to support her mental health and increase her level of functioning.
--- NOTE | 2017-04-30 09:42 | NUR ---
UR Review: ELIA faxed discharge summary to [facility], EXT 423 / fax number [phone]
== END 2017-04-29 14:56 | disposition home or self-care (01) | DRG 881 ==
LOC: GPS 18:08
PROVIDERS: ADMIT Psychiatry & Neurology Psychiatry; ATTEND Psychiatry & Neurology Psychiatry
DX: F43.21 Adjustment disorder with depressed mood (principal); N18.9 Chronic kidney disease, unspecified; N17.0 Acute kidney failure with tubular necrosis; G93.40 Encephalopathy, unspecified; E46 Unspecified protein-calorie malnutrition; F03.91 Unspecified dementia, unspecified severity, with behavioral disturbance; E86.9 Volume depletion, unspecified; F39 Unspecified mood [affective] disorder; E78.5 Hyperlipidemia, unspecified; I12.9 Hypertensive chronic kidney disease with stage 1 through stage 4 chronic kidney disease, or unspecified chronic kidney disease; I25.2 Old myocardial infarction; I25.10 Atherosclerotic heart disease of native coronary artery without angina pectoris; Z91.14 Patient's other noncompliance with medication regimen; Z86.73 Personal history of transient ischemic attack (TIA), and cerebral infarction without residual deficits; Z79.899 Other long term (current) drug therapy; E87.6 Hypokalemia; G93.89 Other specified disorders of brain; F29 Unspecified psychosis not due to a substance or known physiological condition; G43.909 Migraine, unspecified, not intractable, without status migrainosus; E55.9 Vitamin D deficiency, unspecified; F22 Delusional disorders
CPT/HCPCS: 36415; 80048-TC; 80053-TC; 80061-TC; 80164-TC; 82306; 82652; 83735-TC; 83970; 84100-TC; 84450-TC; 84460-TC; 85025-TC; 87081-TC; J3490; J7030

== ENCOUNTER 2017-05-02 09:45 | Emergency (ER) | payer OTHER ==
[~2017-05-02] VITALS: Ht 152.4 cm; Wt 44.5 kg
[~2017-05-02 09:45] MED LIST changes: +ACET-868 PO; +ALLA266C2 TP; +AMLO10TA2 PO; -AMLO10TA4 PO; +ASPI-1169 PO; -HYDR-4076 PO; +HYDR-552 PO; +LABE5VIA3 IV; +LORA2VIA11 IV; +MAG30ORA PO; +MAGN400O6 PO; +NORM10004 IV; +ONDA4TAB5 PO; +QUET25TA PO; -VALS320T2 PO; +VALS80TA2 PO; +ZOLP5TAB8 PO
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
[2017-05-02 10:20] LABS: BASOPHILS % (AUTO) 0.3 % (0.0-2.0); EOSINOPHILS % (AUTO) 0.3 % (0.0-6.0); HEMATOCRIT 33 % (33-45); HEMOGLOBIN 11.1 g/dL (11.5-14.8); LYMPHOCYTES # (AUTO) 0.6 /CMM (0.8-4.8); MEAN CORPUSCULAR HEMOGLOBIN 28 PG (26.0-33.0); MEAN CORPUSCULAR HGB CONC 34 g/dl (31.0-36.0); MEAN CORPUSCULAR VOLUME 83 fL (82-100); MONOCYTES # (AUTO) 0.5 /CMM (0.1-1.30); MONOCYTES % (AUTO) 6.6 % (2.0-12.0); NEUTROPHILS # (AUTO) 5.9 /CMM (1.8-8.9); NEUTROPHILS % (AUTO) 83.8 % (43.0-81.0); PLATELET COUNT (AUTO) 186 /CMM (150-450); RDW COEFFICIENT OF VARIATION 14.1 (11.5-15.0); RED BLOOD CELL COUNT(AUTO) 3.94 MIL/uL (4.0-5.2)
[2017-05-02 10:31] LABS: CALCIUM, SERUM 8.9 mg/dL (8.5-10.1); CARBON DIOXIDE 30 mmol/L (21-32); CHLORIDE 106 mmol/L (98-107); CREATININE 1.3 mg/dL (0.6-1.3); GLUCOSE 133 mg/dL (74-106); POTASSIUM 3.7 mmol/L (3.5-5.1); SODIUM SERUM 141 mmol/L (136-145); UREA NITROGEN, BLOOD 27 mg/dL (7-18)
[2017-05-02 10:36] LABS: ACETAMINOPHEN < 10 ug/ml (10-30); ALANINE AMINOTRANSFERASE 96 U/L (12-78); ALBUMIN 3.1 g/dL (3.4-5.0); ALCOHOL, BLOOD < 3 mg/dL (0-0); ALKALINE PHOSPHATASE 98 U/L (46-116); ASPARTATE AMINOTRANSFERASE 54 U/L (15-37); BILIRUBIN,DIRECT 0.1 mg/dL (0.0-0.2); BILIRUBIN,TOTAL 0.3 mg/dL (0.2-1.0); SALICYLATE 0.5 mg/dL (2.8-20.0); TOTAL PROTEIN, SERUM 6.6 g/dL (6.4-8.2)
--- NOTE | 2017-05-02 10:36 | NUR ---
ambulated to restroom with steady but shuffling gait with one assist
[2017-05-02 10:38] LABS: TROPONIN I < 0.017 ng/mL (0.00-0.056)
--- NOTE | 2017-05-02 10:52 | NUR ---
UNABLE TO PROVIDE URINE SAMPLE. ORDER FOR IN AND OUT CATH OBTAINED BY
[2017-05-02 11:34] LABS: APPEARANCE,URINE Clear (CLEAR); BILIRUBIN,URINE Negative (NEGATIVE); BLOOD, URINE Negative Ery/uL (NEGATIVE); COLOR,URINE Yellow (YELLOW); KETONES,URINE Negative (NEGATIVE); LEUKOCYTE ESTERASE ,URINE Negative (NEGATIVE); NITRITE, URINE Negative (NEGATIVE); PH,URINE 6.5 (5.0-8.0); PROTEIN,URINE 100 mg/dl (NEGATIVE); UGLUCOSE Negative (NEGATIVE); UROBILINOGEN,URINE 0.2 EU/dL (0.2)
[2017-05-02 11:58] LABS: RBC,URINE 0-2 /HPF (0-2)
[2017-05-02 11:59] LABS: BACTERIA,URINE Few /HPF (None Seen); SQUAMOUS EPITHELIAL CELL,UR Few /HPF (None Seen); URINE AMORPHOUS URATE Few /HPF (None Seen)
--- NOTE | 2017-05-02 11:59 | NUR ---
REQUESTED [facility] FOR TRANSPORT BACK HOME, ETA 45 MIN, TRIP #[id number]
--- NOTE | 2017-05-02 12:41 | NUR ---
CALLED [facility]ER FOR DOCUMENTUM CONSULTANT CONSULT. PT IS A/OX2, KNOWS HER ADDRESS, AND AMBULATORY, BUT NO ONE IS AT HOME.
--- NOTE | 2017-05-02 12:55 | NUR ---
ELIA received a call from pt's YESIKA Gaffney stating that pt. is psychiatrically and medically cleared for discharge however no one is home to accept the pt. Pt. is alert and oriented x 2. ELIA contacted pt's Geronimo at , however there is no answer and ELIA is unable to leave a voicemail. ELIA looked into pt's record from previous admission in GPS and found pt's neighbor Maday's contact. ELIA contacted Maday and left her a voicemail and text message requesting a call back. ELIA contacted APS worker Licha to inquire if she had 's contact number. [id number] informed SW that she did not have it. ELIA to continue attempt to contact pt's and neighbor. ELIA gave YESIKA Gaffney pt's neighbor Maday's contact information.
--- NOTE | 2017-05-02 14:24 | NUR ---
SPOKE WITH NEIGHBOR CHERYL, WHO GAVE ME A HOME NUMBER FOR PT AND TANNER: [phone]
--- NOTE | 2017-05-02 14:27 | NUR ---
CALLED PT'S HOME; NO ANSWER
--- NOTE | 2017-05-02 14:42 | NUR ---
SPOKEWITH PETER, CHIEF DESIGN BRANCH, WHO STATES THAT THE NEIGHBOR AND WILL BE AT HOME IF WE CAN TRANSPORT HER HOME. WILL ATTEMPT TO ARRANGE TAXI HOME.
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
[2017-05-02 15:50] VITALS: BP 145/88
--- NOTE | 2017-05-02 15:50 | NUR ---
Patient discharged to home via taxi in stable condition. Written and verbal after care instructions given. Patient verbalizes understanding of instruction.
== END 2017-05-02 15:55 | disposition home or self-care (01) ==
LOC: ER 09:47
DX: F41.0 Panic disorder [episodic paroxysmal anxiety] (principal); E78.5 Hyperlipidemia, unspecified; I10 Essential (primary) hypertension; Z79.82 Long term (current) use of aspirin; Z86.73 Personal history of transient ischemic attack (TIA), and cerebral infarction without residual deficits
CPT/HCPCS: 36415; 71045-TC; 80048-TC; 80076-TC; 80305; 81000-TC; 84484-TC; 85025-TC; A4606; G0480; Z7610

== ENCOUNTER 2017-05-13 12:33 | Emergency (ER) | payer OTHER ==
[~2017-05-13] VITALS: Ht 152.4 cm; Wt 52.6 kg
[~2017-05-13 12:33] MED LIST changes: -LORA2VIA11 IV; -QUET25TA PO; -ZOLP5TAB8 PO
--- NOTE | 2017-05-13 12:45 | NUR ---
PT BIBRA FROM HOME. /HOME HEALTH STAFF CALLED FOR ELEVATED BP. PT DENIES ANY SYMPTOMS. SEEN BY MD FOR EVAL. SAFETY AND COMFORT MEASURES PROVIDED. WILL MONITOR.
--- NOTE | 2017-05-13 13:10 | NUR ---
BRITTANY AT BS.
--- NOTE | 2017-05-13 13:23 | NUR ---
CALLED PHARMACY FOR LISINOPRIL
[2017-05-13] MEDS: LISINOPRIL (20MG) 20 MG TABLET PO SCH (13:25)
[2017-05-13 13:29] LABS: BASOPHILS # (AUTO) 0.1 /CMM (0.0-0.2); BASOPHILS % (AUTO) 0.7 % (0.0-2.0); EOSINOPHILS % (AUTO) 0.5 % (0.0-6.0); HEMATOCRIT 33 % (33-45); HEMOGLOBIN 11.4 g/dL (11.5-14.8); LYMPHOCYTES # (AUTO) 1.1 /CMM (0.8-4.8); LYMPHOCYTES % (AUTO) 13.7 % (20.0-44.0); MEAN CORPUSCULAR HEMOGLOBIN 28 PG (26.0-33.0); MEAN CORPUSCULAR HGB CONC 34 g/dl (31.0-36.0); MEAN CORPUSCULAR VOLUME 83 fL (82-100); MONOCYTES # (AUTO) 0.6 /CMM (0.1-1.30); NEUTROPHILS # (AUTO) 5.9 /CMM (1.8-8.9); NEUTROPHILS % (AUTO) 77.1 % (43.0-81.0); PLATELET COUNT (AUTO) 250 /CMM (150-450); RDW COEFFICIENT OF VARIATION 14.7 (11.5-15.0); RED BLOOD CELL COUNT(AUTO) 4.03 MIL/uL (4.0-5.2); WHITE BLOOD COUNT (AUTO) 7.8 K/uL (4.3-11.0)
[2017-05-13 13:44] LABS: ALANINE AMINOTRANSFERASE 73 U/L (12-78); ALBUMIN 3.5 g/dL (3.4-5.0); ALKALINE PHOSPHATASE 101 U/L (46-116); ASPARTATE AMINOTRANSFERASE 42 U/L (15-37); BILIRUBIN,DIRECT 0.1 mg/dL (0.0-0.2); BILIRUBIN,TOTAL 0.4 mg/dL (0.2-1.0); CALCIUM, SERUM 9.3 mg/dL (8.5-10.1); CARBON DIOXIDE 33 mmol/L (21-32); CHLORIDE 102 mmol/L (98-107); CREATININE 1.3 mg/dL (0.6-1.3); GLUCOSE 117 mg/dL (74-106); SODIUM SERUM 140 mmol/L (136-145); TOTAL PROTEIN, SERUM 7.4 g/dL (6.4-8.2); UREA NITROGEN, BLOOD 21 mg/dL (7-18)
[2017-05-13 13:45] LABS: INR 0.92 (0.87-1.13)
[2017-05-13 13:46] LABS: POTASSIUM 2.7 mmol/L (3.5-5.1); TROPONIN I < 0.017 ng/mL (0.00-0.056)
[2017-05-13] MEDS ORDERED: POTASSIUM CHLORIDE 20 MEQ TAB.PRT.SR PO ONE ×2 (14:00→14:16)
[2017-05-13] MEDS ORDERED: hydrALAZINE HCL IV 20 MG VIAL ONE (14:15)
[2017-05-13] MEDS ORDERED: hydrALAZINE HCL IV 20 MG VIAL IV ONE (14:30)
--- NOTE | 2017-05-13 15:26 | NUR ---
CALLED [facility], ETA OF 1630 WAS GIVEN.
--- NOTE | 2017-05-13 17:27 | NUR ---
REPORT GIVEN TO [facility] STAFF FOR TRANSPORT.
[2017-05-13 17:28] VITALS: BP 149/95
== END 2017-05-13 17:31 | disposition home or self-care (01) ==
LOC: ER 12:34
DX: E87.6 Hypokalemia (principal); E78.5 Hyperlipidemia, unspecified; I10 Essential (primary) hypertension; Z79.82 Long term (current) use of aspirin; Z86.73 Personal history of transient ischemic attack (TIA), and cerebral infarction without residual deficits; Z91.19 Patient's noncompliance with other medical treatment and regimen
CPT/HCPCS: 36415; 71045-TC; 80048-TC; 80076-TC; 84484-TC; 85025-TC; 85730-TC; A4606; J0360; Z7610